=== PATIENT | male | born 1960 | race American Indian/Alaskan Native ===

== ENCOUNTER 2016-12-03 14:13 | Inpatient (IN) | payer BC ==
[2016-12-03] MEDS ORDERED: Sodium Chloride 0.9% 1,000 ML IV ONE ×2 (14:58→20:15)
[2016-12-03 15:23] LABS: BASO % 0.6 % (0.0-2.0); EOS # 0.2 K/uL (0.0-0.7); EOS % 4.5 % (0.0-4.0); HEMATOCRIT 25.2 % (35.0-51.0); LYMPH # 2.1 K/uL (1.0-4.3); LYMPH % 48.1 % (20.0-40.0); MEAN CELL VOLUME 87.2 fL (80.0-94.0); MEAN CORPUSCULAR HGB CONC 33.2 g/dL (33.0-37.0); MONO # 0.4 K/uL (0.0-0.8); MONO % 10.2 % (0.0-10.0); NRBC % 0.1 % (0.0-2.0); RED CELL DISTRIBUTION WIDTH 15.5 % (11.5-14.5); WHITE BLOOD COUNT 4.4 K/uL (4.8-10.8)
[2016-12-03 15:32] LABS: INR 1.2
[2016-12-03 15:34] LABS: CHLORIDE 106 mmol/L (98-107); SODIUM 136 mmol/L (132-148)
[2016-12-03 15:35] LABS: POTASSIUM 3.3 mmol/L (3.6-5.2)
[2016-12-03 15:36] LABS: GFR AFRICAN-AMERICAN > 60
[2016-12-03 15:37] LABS: ALB/GLOB RATIO 0.9 (1.0-2.1); ALKALINE PHOSPHATASE 40 U/L (38-126); ALT/SGPT 40 U/L (21-72); AST/SGOT 21 U/L (17-59); BILIRUBIN,TOTAL 0.2 mg/dL (0.2-1.3); BLOOD UREA NITROGEN 30 mg/dL (9-20); CALCIUM 7.9 mg/dl (8.6-10.4); CARBON DIOXIDE 20 mmol/L (22-30); GLUCOSE,RANDOM 89 mg/dL (75-110)
[2016-12-03 15:38] LABS: MAGNESIUM 1.5 mg/dL (1.6-2.3)
[2016-12-03] MEDS ORDERED: Pantoprazole 80 MG in Sodium Chloride 0.9% 100 ML IV STA (15:40)
--- NOTE | 2016-12-03 16:19 | C.PDOC ---
History Of Present Illness Pt had a syncopal episode while at work today. He c/o black stools for the past 2 days. Time Seen by Provider: 12/03/16 14:50 Chief Complaint (Nursing): Syncope History Per: Patient, EMS Onset/Duration Of Symptoms: Days (2) Current Symptoms Are (Timing): Still Present Number Of Bleeding Episodes: Multiple: (4) Severity: Moderate Associated Symptoms: Melena, Other (Syncope) Modifying Factors: Other Indicated Below Additional History Per: Prior Records Past Medical History Reviewed: Historical Data, Nursing Documentation, Vital Signs Vital Signs: Last Vital Signs Temp 98.2 F 12/03/16 14:31 Pulse 85 12/03/16 15:27 Resp 14 12/03/16 15:27 BP 103/51 L 12/03/16 15:27 Pulse Ox 98 12/03/16 16:31 - Medical History PMH: Gastrointestinal Ulcer (?), HTN Other PMH: Gout Other Surgeries: Sigmoid colectomy due to diverticulitis. Family History: States: Unknown Family Hx - Social History Hx Tobacco Use: No Hx Alcohol Use: No Hx Substance Use: No Review Of Systems Except As Marked, All Systems Reviewed And Found Negative. Constitutional: Negative for: Fever Cardiovascular: Negative for: Chest Pain Respiratory: Negative for: Shortness of Breath Gastrointestinal: Positive for: Melena. Negative for: Vomiting, Abdominal Pain , Diarrhea, Hematochezia, Hematemesis Genitourinary: Negative for: Dysuria Musculoskeletal: Negative for: Neck Pain Skin: Negative for: Rash Neurological: Negative for: Weakness, Numbness, Seizures Physical Exam - Physical Exam Appears: In Acute Distress (mild) Skin: Warm, Dry, Pale Head: Atraumatic, Normacephalic Eye(s): bilateral: PERRL, EOMI, Conjunctiva Pale Neck: Normal ROM, Supple Cardiovascular: Rhythm Regular Respiratory: Normal Breath Sounds, No Accessory Muscle Use Gastrointestinal/Abdominal: Soft, No Tenderness Rectal: Heme Positive, Melena (liquid) Back: No CVA Tenderness Extremity: Normal ROM, No Pedal Edema, No Calf Tenderness Neurological/Psych: Oriented x3, Normal Motor, Normal Sensation ED Course And Treatment - Laboratory Results Result Diagrams: 12/03/16 15:17 12/03/16 15:17 Lab Interpretation: Abnormal Interpretation Of Abnormal: Anemia. Elevated BUN. ECG: Interpreted By Me, Viewed By Me ECG Rhythm: Sinus Rhythm, Nonspecific Changes Rate From EC O2 Sat by Pulse Oximetry: 98 Pulse Ox Interpretation: Normal - Radiology CXR: Interpreted by Me, Viewed By Me CXR Interpretation: Yes: No Acute Disease - Physician Consult Information Physician Contacted: Awa Parker (GI Fellow) Outcome Of Conversation: She agrees with Protonix Drip, blood tranfusion and will see pt in the hospital. Progress - Interventions Interventions:: Observation, Intravenous fluid - Medications Administered Intravenous: Other (PPI) - Data Reviewed Data Reviewed: Lab, Diagnostic imaging, EKG, Old records - Patient Status Patient status: Partially improved - Critical Care Citical Care: Excluding Proc Time Critical Care Time: 60 minutes - Continuity of Care Discussed patient case with:: Patient, ED Nurse, On-call PMD-pt unassigned Discussed pt. case with software developer consultant/specialty: Gastroenterology - Patient Plan Patient Plan: Admission, Telemetry Disposition Discussed With : Magali Reid Comment: He accepted pt on his service. Doctor Will See Patient In The: Hospital Counseled Patient/Family Regarding: Studies Performed, Diagnosis - Disposition Disposition: HOSPITALIZED Disposition Time: 16:37 Condition: SERIOUS - Clinical Impression Clinical Impression: Syncope, Upper GI bleed, Anemia
--- NOTE | 2016-12-03 16:36 | RAD ---
PROCEDURE: CHEST RADIOGRAPH, 1 VIEW. Technique: Single view portable semi erect @ 15:00 HISTORY: Syncope COMPARISON: None available. FINDINGS: LUNGS: Clear. PLEURA: No pneumothorax or pleural fluid seen. CARDIOVASCULAR: No radiographic findings to suggest acute or significant cardiovascular disease. OSSEOUS STRUCTURES: No significant abnormalities. VISUALIZED UPPER ABDOMEN: Normal. OTHER FINDINGS: None. IMPRESSION: No active disease. Please note: No preliminary report/ innterpretation of this examination provided by emergency department personnel.
--- NOTE | 2016-12-03 19:15 | CP.PCM.CON ---
<Awa Parker - Last Filed: 12/03/16 19:24> History of Present Illness - History of Present Illness History of Present Illness: GI Fellow PGY4 Consult Note This is a 56yM with pmhx of HTN, gout, perforated diverticulitis s/p sigmoid resection 6yrs ago presenting s/p syncopal episode. Pt passed out on his way to work today and on admission to ER was found to have Hgb 8.4, reported black stools for 2 days and SBP 90-100s with HR 80s. Pt reports feeling fine for the past week and denies any presyncopal episodes, no chest pain, dizziness, hematemesis or hematochezia. Pt does reports dark stool starting 2-3days ago which he attributed to drinking red wine . Pt denies any abdominal pain or prior GI bleed. Pt reports that he had a colonoscopy and EGD last yr in [facility] and had one polypectomy and reports to have a small gastric ulcer with no active GI bleed, no h.pylori infection. Pt denies any NSAIDs, Ibuprofen, Advil, or Aleve. Pt reports feeling a little better at this time. Case was discussed with ER attending with plan for PPI drip., NPO, IVF hydration, PRBCs. At time of evaluation, pt had a large black tarry BM in bedside commode. Discussed with pt and his and sister at bedside, and will plan for emergent endoscopy tonight. ROS: A 12pt ROS was obtained and was negative except as above. 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 , Denies tobacco or drugs, social alcohol Past Patient History - Past Social History Smoking Status: Never Smoked - CARDIAC Hx Hypertension: Yes - MUSCULOSKELETAL/RHEUMATOLOGICAL Hx Gout: Yes - PSYCHIATRIC Hx Substance Use: No - SURGICAL HISTORY Other/Comment: Diverticulitis sx 2010 - ANESTHESIA Hx Anesthesia: Yes Hx Anesthesia Reactions: No Meds Allergies/Adverse Reactions: Allergies Allergy/AdvReac Type Severity Reaction Status Date / Time No Known Allergies Allergy Unverified 12/03/16 14:40 - Medications Medications: Current Medications Pantoprazole Sodium 80 mg/ (Sodium Chloride) 100 mls @ 10 mls/hr IV .Q10H STA PRN Reason: 8 MG/HR Stop: 12/04/16 01:39 Last Admin: 12/03/16 16:43 Dose: 10 mls/hr Physical Exam - Constitutional Appears: No Acute Distress - Head Exam Head Exam: ATRAUMATIC, NORMAL INSPECTION, NORMOCEPHALIC - Eye Exam Eye Exam: EOMI, Normal appearance, PERRL Pupil Exam: PERRL - ENT Exam ENT Exam: Mucous Membranes Moist, Normal Exam - Neck Exam Neck exam: Positive for: Normal Inspection - Respiratory Exam Respiratory Exam: Clear to Auscultation Bilateral, NORMAL BREATHING PATTERN - Cardiovascular Exam Cardiovascular Exam: RRR, +S1, +S2 - GI/Abdominal Exam GI & Abdominal Exam: Normal Bowel Sounds, Soft. absent: Distended, Organomegaly , Tenderness Additional comments: Surgical scars - Rectal Exam Rectal Exam: Black Stool - Extremities Exam Extremities exam: Positive for: full ROM, normal inspection. Negative for: pedal edema - Back Exam Back exam: NORMAL INSPECTION - Neurological Exam Neurological exam: Alert, Oriented x3 - Psychiatric Exam Psychiatric exam: Normal Affect, Normal Mood - Skin Skin Exam: Dry, Intact, Normal Color, Warm Results - Vital Signs Recent Vital Signs: Last Vital Signs Temp 98.2 F 12/03/16 14:31 Pulse 75 12/03/16 17:46 Resp 16 12/03/16 17:46 BP 101/59 L 12/03/16 17:46 Pulse Ox 100 12/03/16 17:46 - Labs Result Diagrams: 12/03/16 15:17 12/03/16 15:17 Labs: Laboratory Results - last 24 hr 12/03/16 12/03/16 12/03/16 15:17 15:17 15:17 WBC 4.4 L RBC 2.89 L Hgb 8.4 L Hct 25.2 L MCV 87.2 MCH 29.0 MCHC 33.2 RDW 15.5 H Plt Count 116 L MPV 9.0 Neut % (Auto) 36.6 L Lymph % (Auto) 48.1 H [place] % (Auto) 10.2 H Eos % (Auto) 4.5 H Baso % (Auto) 0.6 Neut # 1.6 L Lymph # 2.1 [place] # 0.4 Eos # 0.2 Baso # 0.0 Differential Comment PT 12.9 H INR 1.2 APTT 22 Sodium 136 Potassium 3.3 L Chloride 106 Carbon Dioxide 20 L Anion Gap 13 BUN 30 H Creatinine 0.8 Est GFR ( Amer) > 60 Est GFR (Non-Af Amer) > 60 Random Glucose 89 Calcium 7.9 L Magnesium 1.5 L Total Bilirubin 0.2 AST 21 ALT 40 Alkaline Phosphatase 40 Total Creatine Kinase 347 H CK-MB (Mass) 1.60 Troponin I, Quant < 0.0120 Total Protein 6.0 L Albumin 2.9 L Globulin 3.1 Albumin/Globulin Ratio 0.9 L Stool Occult Blood Blood Type Antibody Screen 12/03/16 12/03/16 15:17 15:49 WBC RBC Hgb Hct MCV MCH MCHC RDW Plt Count MPV Neut % (Auto) Lymph % (Auto) [place] % (Auto) Eos % (Auto) Baso % (Auto) Neut # Lymph # [place] # Eos # Baso # Differential Comment PT INR APTT Sodium Potassium Chloride Carbon Dioxide Anion Gap BUN Creatinine Est GFR ( Amer) Est GFR (Non-Af Amer) Random Glucose Calcium Magnesium Total Bilirubin AST ALT Alkaline Phosphatase Total Creatine Kinase CK-MB (Mass) Troponin I, Quant Total Protein Albumin Globulin Albumin/Globulin Ratio Stool Occult Blood Positive H Blood Type O POSITIVE Antibody Screen Negative Assessment & Plan - Assessment and Plan (Free Text) Assessment: This is a 56yM with pmhx of HTN, gout, diverticulitis presenting with syncope and anemia. 1. Symptomatic Anemia 2. Upper GI bleed 3. Melena 4. Hx of Gout 5. Hx HTN Plan: -Active GI bleed with melena, anemia and Hgb 8.4 -Resuscitate with 1U PRBCs, may need more blood transfusions, monitor H/H -IV PPI drip and Bolus -NPO -IVF NS @ 125cc/hr -Plan for emergent EGD tonight at 1999 -Case discussed with pt and family, consent signed and in chart -Will follow pt closely <Gerber Gooden - Last Filed: 12/03/16 21:02> Meds - Medications Medications: Current Medications Pantoprazole Sodium 80 mg/ (Sodium Chloride) 100 mls @ 10 mls/hr IV .Q10H STA PRN Reason: 8 MG/HR Stop: 12/04/16 01:39 Last Admin: 12/03/16 16:43 Dose: 10 mls/hr Sodium Chloride (Sodium Chloride 0.9%) 1,000 mls @ 125 mls/hr IV .Q8H BEN Sucralfate (Carafate Tab) 1 gm PO BID BEN Results - Vital Signs Recent Vital Signs: Last Vital Signs Temp 98.1 F 12/03/16 19:25 Pulse 81 12/03/16 19:40 Resp 16 12/03/16 19:40 BP 105/78 12/03/16 19:40 Pulse Ox 100 12/03/16 19:40 - Labs Result Diagrams: 12/03/16 15:17 12/03/16 15:17 Labs: Laboratory Results - last 24 hr 12/03/16 12/03/16 12/03/16 15:17 15:17 15:17 WBC 4.4 L RBC 2.89 L Hgb 8.4 L Hct 25.2 L MCV 87.2 MCH 29.0 MCHC 33.2 RDW 15.5 H Plt Count 116 L MPV 9.0 Neut % (Auto) 36.6 L Lymph % (Auto) 48.1 H [place] % (Auto) 10.2 H Eos % (Auto) 4.5 H Baso % (Auto) 0.6 Neut # 1.6 L Lymph # 2.1 [place] # 0.4 Eos # 0.2 Baso # 0.0 Differential Comment PT 12.9 H INR 1.2 APTT 22 Sodium 136 Potassium 3.3 L Chloride 106 Carbon Dioxide 20 L Anion Gap 13 BUN 30 H Creatinine 0.8 Est GFR ( Amer) > 60 Est GFR (Non-Af Amer) > 60 Random Glucose 89 Calcium 7.9 L Magnesium 1.5 L Total Bilirubin 0.2 AST 21 ALT 40 Alkaline Phosphatase 40 Total Creatine Kinase 347 H CK-MB (Mass) 1.60 Troponin I, Quant < 0.0120 Total Protein 6.0 L Albumin 2.9 L Globulin 3.1 Albumin/Globulin Ratio 0.9 L Stool Occult Blood Blood Type Antibody Screen 12/03/16 12/03/16 15:17 15:49 WBC RBC Hgb Hct MCV MCH MCHC RDW Plt Count MPV Neut % (Auto) Lymph % (Auto) [place] % (Auto) Eos % (Auto) Baso % (Auto) Neut # Lymph # [place] # Eos # Baso # Differential Comment PT INR APTT Sodium Potassium Chloride Carbon Dioxide Anion Gap BUN Creatinine Est GFR ( Amer) Est GFR (Non-Af Amer) Random Glucose Calcium Magnesium Total Bilirubin AST ALT Alkaline Phosphatase Total Creatine Kinase CK-MB (Mass) Troponin I, Quant Total Protein Albumin Globulin Albumin/Globulin Ratio Stool Occult Blood Positive H Blood Type O POSITIVE Antibody Screen Negative Attending/Attestation - Attestation I have personally seen and examined this patient.: Yes I have fully participated in the care of the patient.: Yes I have reviewed all pertinent clinical information: Yes Notes (Text): 12/03/16 20:56 I have seen and examined patient with GI fellow. Agree with above documentation with the following additions. In brief, this is a 56 year old male with history of HTN, gout, perforated diverticulitis s/p partial colon resection who presents to hospital with syncopal episode while at restaurant earlier today. Prior to this he was in usual state of health. He denies abdominal pain, nausea, vomiting, diarrhea, fever/chills, or weight loss. He does report having dark colored stool for the past 2-3 days but thought this was related to ETOH consumption. On arrival to hospital he had one large bowel movement which was black in color and tarry in consistency. He denies recent NSAID use. He had an EGD/colonoscopy 1 year ago in [place] which showed one polyp and a gastric ulcer. HTN Gout History of partial colon resection secondary to perforated diverticulitis Syncope Anemia, melena - severe posing threat to patient life - NPO - Transfuse 1 unit PRBC, continue to monitor H/H - Begin PPI infusion therapy - Given syncopal episode with active large melenotic bowel movement, plan for emergent endoscopy this evening to rule out actively bleeding peptic ulcer - Recommend ICU evaluation - Further recommendations following endoscopic examination
[2016-12-03] MEDS ORDERED: Propofol 10 mg/ml Inj (20 ML) ONE ×4 (19:45→20:43)
[2016-12-03] MEDS ORDERED: Phenylephrine 10 mg/ml Inj ONE (19:53)
[2016-12-03] MEDS ORDERED: Ketamine 50 mg/ml Inj (10 ml) ONE (19:55)
[2016-12-03] MEDS ORDERED: Lactated Ringer's 1,000 ML IV ONE ×3 (20:03→20:49)
[2016-12-03] MEDS: Sodium Chloride 0.9% 1,000 ML IV SCH (22:35)
--- NOTE | 2016-12-03 22:38 | CP.CCUPN ---
CCU Subjective - Physician Review Events Since Last Encounter (Free Text): 12/03/16 22:45 The Patient was seen and examined at the bedside, Medical records reviewed, and management issues were discussed and formulated with the house staff. 56 Y/O M with PMHx of HTN, gout, perforated diverticulitis s/p sigmoid resection 6 years ago Who presented to the ER with complaint of black stools for the past 2 days, also had syncopal episode while at work today. Pt was transfused one unit packed RBC, Started on PPI drip, NPO and IVF hydration Underwent emergent endoscopy tonight showing duodenal ulce, gastritis, no active bleeding. Admitted to ICU for mangement of acute upper GI bleeding Pt AAO x3. Alert, follows some commands Receiving 1U Packed RBC CCU Objective - Vital Signs / Intake & Output Vital Signs (Last 4 hours): Vital Signs Temp Pulse Resp BP Pulse Ox 12/03/16 19:40 81 16 105/78 100 12/03/16 19:25 98.1 F 80 16 111/43 L 99 Intake and Output (Last 8hrs): Intake & Output 12/03/16 12/03/16 12/03/16 06:59 14:59 22:59 Output Total 800 Balance -800 Weight 315 lb Output: Urine 800 Other: Voiding Method Urinal - Physical Exam Head: Positive for: Atraumatic, Normocephalic Pupils: Positive for: PERRL. Negative for: Sluggish, Non-Reactive Extroacular Muscles: Positive for: EOMI Conjunctiva: Positive for: Normal. Negative for: Injected, Icteric Mouth: Positive for: Moist Mucous Membranes Pharnyx: Positive for: Normal. Negative for: ERYTHEMA Nose (Internal): Positive for: Normal Inspection Neck: Positive for: Normal Range of Motion, Trachea Midline. Negative for: Meningeal Signs, MIDLINE TENDERNESS, Paraspinal Tenderness, JVD, Lymphadenopathy , Bruit, Other Respiratory/Chest: Positive for: Clear to Auscultation, Good Air Exchange. Negative for: Respiratory Distress, Accessory Muscle Use, Wheezes, Decreased Breath Sounds, Rales, Retracting, Rhonchi Cardiovascular: Positive for: Regular Rate and Rhythm, Normal S1, S2, Peripheal Pulses Present. Negative for: Murmurs, Irregular Rhythm, Tachycardic, Bradycardic Abdomen: Positive for: Normal Bowel Sounds. Negative for: Tenderness, Distention, Peritoneal Signs, Rebound, Guarding Upper Extremity: Positive for: Normal Inspection, Normal ROM, NORMAL PULSES, Capillary Refill < 2s. Negative for: Cyanosis, Edema Lower Extremity: Positive for: Normal Inspection, NORMAL PULSES, Capillary Refill < 2 s. Negative for: Edema, CALF TENDERNESS Neurological: Positive for: GCS=15, CN II-XII Intact, Speech Normal, Motor Func Grossly Intact, Normal Sensory Function Psychiatric: Positive for: Alert, Oriented x 3 - Medications Active Medications: Active Medications Generic Name Dose Route Start Last Admin Trade Name Freq PRN Reason Stop Dose Admin Pantoprazole Sodium 80 mg/ 100 mls @ 10 mls/hr 12/03/16 15:40 12/03/16 16:43 Sodium Chloride IV 12/04/16 01:39 10 mls/hr .Q10H STA Administration 8 MG/HR Sodium Chloride 1,000 mls @ 125 mls/hr 12/03/16 19:30 Sodium Chloride 0.9% IV .Q8H BEN Sucralfate 1 gm 12/04/16 10:00 Carafate Tab PO BID BEN - Patient Studies Lab Studies: Lab Studies 12/03/16 12/03/16 12/03/16 Range/Units 15:49 15:17 15:17 WBC (4.8-10.8) K/uL RBC (4.40-5.90) Mil/uL Hgb (12.0-18.0) g/dL Hct (35.0-51.0) % MCV (80.0-94.0) fL MCH (27.0-31.0) pg MCHC (33.0-37.0) g/dL RDW (11.5-14.5) % Plt Count (130-400) K/uL MPV (7.2-11.7) fL Neut % (Auto) (50.0-75.0) % Lymph % (Auto) (20.0-40.0) % [place] % (Auto) (0.0-10.0) % Eos % (Auto) (0.0-4.0) % Baso % (Auto) (0.0-2.0) % Neut # (1.8-7.0) K/uL Lymph # (1.0-4.3) K/uL [place] # (0.0-0.8) K/uL Eos # (0.0-0.7) K/uL Baso # (0.0-0.2) K/uL Differential Comment PT (9.7-12.2) SECONDS INR APTT (21-34) SECONDS Sodium 136 (132-148) mmol/L Potassium 3.3 L (3.6-5.2) mmol/L Chloride 106 (98-107) mmol/L Carbon Dioxide 20 L (22-30) mmol/L Anion Gap 13 (10-20) BUN 30 H (9-20) mg/dL Creatinine 0.8 (0.8-1.5) mg/dL Est GFR ( Amer) > 60 Est GFR (Non-Af Amer) > 60 Random Glucose 89 (75-110) mg/dL Calcium 7.9 L (8.6-10.4) mg/dl Magnesium 1.5 L (1.6-2.3) mg/dL Total Bilirubin 0.2 (0.2-1.3) mg/dL AST 21 (17-59) U/L ALT 40 (21-72) U/L Alkaline Phosphatase 40 (38-126) U/L Total Creatine Kinase 347 H (55-170) U/L CK-MB (Mass) 1.60 (0.0-3.38) ng/mL Troponin I, Quant < 0.0120 (0.00-0.120) ng/mL Total Protein 6.0 L (6.3-8.3) g/dL Albumin 2.9 L (3.5-5.0) g/dL Globulin 3.1 (2.2-3.9) gm/dL Albumin/Globulin Ratio 0.9 L (1.0-2.1) Stool Occult Blood Positive H (NEGATIVE) Blood Type O POSITIVE Antibody Screen Negative 12/03/16 12/03/16 Range/Units 15:17 15:17 WBC 4.4 L (4.8-10.8) K/uL RBC 2.89 L (4.40-5.90) Mil/uL Hgb 8.4 L (12.0-18.0) g/dL Hct 25.2 L (35.0-51.0) % MCV 87.2 (80.0-94.0) fL MCH 29.0 (27.0-31.0) pg MCHC 33.2 (33.0-37.0) g/dL RDW 15.5 H (11.5-14.5) % Plt Count 116 L (130-400) K/uL MPV 9.0 (7.2-11.7) fL Neut % (Auto) 36.6 L (50.0-75.0) % Lymph % (Auto) 48.1 H (20.0-40.0) % [place] % (Auto) 10.2 H (0.0-10.0) % Eos % (Auto) 4.5 H (0.0-4.0) % Baso % (Auto) 0.6 (0.0-2.0) % Neut # 1.6 L (1.8-7.0) K/uL Lymph # 2.1 (1.0-4.3) K/uL [place] # 0.4 (0.0-0.8) K/uL Eos # 0.2 (0.0-0.7) K/uL Baso # 0.0 (0.0-0.2) K/uL Differential Comment PT 12.9 H (9.7-12.2) SECONDS INR 1.2 APTT 22 (21-34) SECONDS Sodium (132-148) mmol/L Potassium (3.6-5.2) mmol/L Chloride (98-107) mmol/L Carbon Dioxide (22-30) mmol/L Anion Gap (10-20) BUN (9-20) mg/dL Creatinine (0.8-1.5) mg/dL Est GFR ( Amer) Est GFR (Non-Af Amer) Random Glucose (75-110) mg/dL Calcium (8.6-10.4) mg/dl Magnesium (1.6-2.3) mg/dL Total Bilirubin (0.2-1.3) mg/dL AST (17-59) U/L ALT (21-72) U/L Alkaline Phosphatase (38-126) U/L Total Creatine Kinase (55-170) U/L CK-MB (Mass) (0.0-3.38) ng/mL Troponin I, Quant (0.00-0.120) ng/mL Total Protein (6.3-8.3) g/dL Albumin (3.5-5.0) g/dL Globulin (2.2-3.9) gm/dL Albumin/Globulin Ratio (1.0-2.1) Stool Occult Blood (NEGATIVE) Blood Type Antibody Screen Laboratory Results - last 24 hr 12/03/16 12/03/16 12/03/16 15:17 15:17 15:17 WBC 4.4 L RBC 2.89 L Hgb 8.4 L Hct 25.2 L MCV 87.2 MCH 29.0 MCHC 33.2 RDW 15.5 H Plt Count 116 L MPV 9.0 Neut % (Auto) 36.6 L Lymph % (Auto) 48.1 H [place] % (Auto) 10.2 H Eos % (Auto) 4.5 H Baso % (Auto) 0.6 Neut # 1.6 L Lymph # 2.1 [place] # 0.4 Eos # 0.2 Baso # 0.0 Differential Comment PT 12.9 H INR 1.2 APTT 22 Sodium 136 Potassium 3.3 L Chloride 106 Carbon Dioxide 20 L Anion Gap 13 BUN 30 H Creatinine 0.8 Est GFR ( Amer) > 60 Est GFR (Non-Af Amer) > 60 Random Glucose 89 Calcium 7.9 L Magnesium 1.5 L Total Bilirubin 0.2 AST 21 ALT 40 Alkaline Phosphatase 40 Total Creatine Kinase 347 H CK-MB (Mass) 1.60 Troponin I, Quant < 0.0120 Total Protein 6.0 L Albumin 2.9 L Globulin 3.1 Albumin/Globulin Ratio 0.9 L Stool Occult Blood Blood Type Antibody Screen 12/03/16 12/03/16 15:17 15:49 WBC RBC Hgb Hct MCV MCH MCHC RDW Plt Count MPV Neut % (Auto) Lymph % (Auto) [place] % (Auto) Eos % (Auto) Baso % (Auto) Neut # Lymph # [place] # Eos # Baso # Differential Comment PT INR APTT Sodium Potassium Chloride Carbon Dioxide Anion Gap BUN Creatinine Est GFR ( Amer) Est GFR (Non-Af Amer) Random Glucose Calcium Magnesium Total Bilirubin AST ALT Alkaline Phosphatase Total Creatine Kinase CK-MB (Mass) Troponin I, Quant Total Protein Albumin Globulin Albumin/Globulin Ratio Stool Occult Blood Positive H Blood Type O POSITIVE Antibody Screen Negative EKG/Cardiology Studies: Cardiology / EKG Studies 12/03/16 14:17 EKG [ELECTROCARDIOGRAM] Stat Comment: Mode Of Transportation: BED Reason For Exam: syncope Fingerstick Blood Sugar Results: 114 Review of Systems - Cardiovascular Cardiovascular: absent: As Per HPI, Acrocyanosis, Chest Pain, Chest Pain at Rest , Chest Pain with Activity, Claudication, Diaphoresis, Dyspnea, Dyspnea on Exertion, Edema, Irregular Heart Rhythm, Pain Radiating to Arm/Neck/Jaw, Leg Edema, Leg Ulcers, Lightheadedness, Orthopnea, Palpitations, Paroxysmal Nocturnal Dyspnea, Pedal Edema, Radiating Pain, Rapid Heart Rate, Slow Heart Rate, Syncope, Other, UNREMARKABLE - Respiratory Respiratory: absent: As Per HPI, Cough, Dyspnea, Hemoptysis, Dyspnea on Exertion , Wheezing, Snoring, Stridor, Pain on Inspiration, Chest Congestion, Excessive Mucous Production, Change in Mucous Color, Pain with Coughing, Other, UNREMARKABLE - Gastrointestinal Gastrointestinal: Abdominal Pain, Melena, Nausea. absent: Vomiting Critical Care Progress Note - Extremities/Vascular Does the Patient have a Central Venous Catheter?: No Does the Patient need a Central Venous Catheter?: No Does the Patient have a Vang Catheter?: No Does the Patient need a Vang Catheter?: No - Nutrition Nutrition: Nutrition Category Date Time Status Liquid Diet [DIET] Diets 12/03/16 Dinner Active Assessment/Plan (1) Upper GI bleed Current Visit: Yes Status: Acute (2) Syncope Current Visit: Yes Status: Acute (3) Posthemorrhagic anemia Current Visit: Yes Status: Acute (4) Duodenal ulcer Current Visit: Yes Status: Acute - Assessment and Plan (Free Text) Assessment: Acute upper GI bleed S/p 1U Packed RBC transfusion - Acute upper GI bleed most likely PUD/ duodenal ulcer - Anemia sec to acute Blood loss - Admit to ICU sec to hemodynamic instability (orthostatic hypotension, tachycardia, syncope) - Nasogastric tube - Two large bore peripheral catheters - Suplemental O2 - NPO - Volume resuscitation - Hold antihypertensives - IV Hydration, with SODIUM CHLORIDE 0.9% INJ @ 100 ml/hr - PANTOPRAZOLE drip - Serial CBCs q 8 /HR, RBC transfusions to keep hemoglobin > 8 - Active type and screen sent today - hold All antiplatelets and anticoagulation - GI evaluation appreciated, underwent endoscopy for the diagnosis and treatment of active UGI bleeding - Follow up duodenal ulcer biopsy - DVT PPx: SCD Full code Total Critical Care Time spent 45 minutes
--- NOTE | 2016-12-03 23:47 | CP.PCM.HP ---
History of Present Illness - History of Present Illness History of Present Illness: COMPREHENSIVE HISTORY & PHYSICAL EXAM HPI WITH NO PREVIOUS CARDIAC HISTORY ,PT WHILE GOING TO WORK , HAD SYNCOPAL EPISODE . PRELIMANARY W/U IN ER , HG 8.4, POS OCCULT STOOL RECENTLY HAD EGD/COLO IN [place] , SMALL GASTRIC ULCER NO ASA, NSAID INGESTION PAST HIST. NO CARDIAC/NEURO HISTORY PERSONAL HIST: Smoking. N Alcohol. Y Allergy N Travel_- . FAMILY HIST : ROS : Constitutional: Negative for weight change, chills, night sweats Eyes: Negative for redness, swelling, itching, discharge, vision changes, blurry vision, double vision, glaucoma, cataracts, Ears: Negative for hearing loss, ringing, , tinnitus, vertigo Nose: Negative for rhinorrhea, stuffiness, sniffing, itching, postnasal drip, discoloration, nasal congestion and epistaxis. Throat: Negative for throat clearing, sore throat, hoarseness, difficulty swallowing and difficulty speaking. Respiratory: Negative for cough, , sputum production, chest tightness, wheezing, pleuritic chest pain ,daytime somnolence, chronic cough, hemoptysis, snoring at night, Cardiovascular: Negative for chest pain, palpitations, orthopnea, PND, Edema of legs, leg cramps, angina, claudication, , irregular heartbeat, Neurology: Negative for irritability, muscle weakness, numbness and tingling, seizures, tremors, migraines, slurred speech, , memory loss, mood changes, recurrent headaches Gastrointestinal: Negative for difficulty swallowing, diarrhea, constipation, black stools, rectal bleeding, nausea, flatulence, reflux, poor appetite, changes in bowel habits, abdominal pain Genitourinary: Negative for frequent urination, hematuria, discharge, incontinence, urinary retention, frequent UTI, Psychiatric: Negative for depression, anxiety/panic, suicidal tendencies, Musculoskeletal: Negative for swollen joints, back pain, , neck pain, morning stiffness of joints, . Skin: Negative for rash, ulcers, itching, dry skin and pigmented lesions. P/E: Constitutional: Appears stated age and in no apparent distress. Head: Normocephalic. Ears: External ear canals patent without inflammation. Tympanic membranes intact with normal light reflex and landmark. Eyes: Pupils are central, bilaterally equal, symmetrical and reacts to light with normal movements and no icterus or pallor. Nose: External nares are patent. Mucosa is pink Mouth-Throat: Good general appearance and condition. No post-pharyngeal/oropharyngeal erythema and tonsillar hypertrophy. Good dental hygiene. Neck-Lymphatic: Neck is supple with normal ROM, no thyromegaly, lymph nodes or masses. JVD is normal with no carotid bruit. Lungs: Clear to percussion and auscultation with bilateral normal air entry. Cardiovascular: S1 and S2 are normal with no murmurs, gallops and rub. GI Exam: No hepatomegaly. Abdomen is soft and non-tender. No Organomegaly , masses or hernias are evident and bowel sounds are normal and active. Neurology: Higher function and all cranial nerves intact, with no gross motor or sensory deficit. Superficial and deep reflexes are normal with downwards planters. No cerebellar deficit with normal gait. Musculoskeletal: No tender spots with normal curvature of the spine with no swelling or restricted ROM of the small and large joints. Extremities: Homans sign absent. Intact pulses with no pitting edema, calf tenderness or skin color changes. Skin: No rash, eruptions or abnormal skin pigmentation LAB/RADIOLOGY: ASSESMENT : UPPER GI BLREEDING , PROBABLY FROM GASTRIC ULCER, R/O CA PLAN: TRANSFUSE GI EVAL Present on Admission - Present on Admission Any Indicators Present on Admission: No Past Patient History - Past Social History Smoking Status: Never Smoked - CARDIAC Hx Hypertension: Yes - MUSCULOSKELETAL/RHEUMATOLOGICAL Hx Falls: No - PSYCHIATRIC Hx Substance Use: No - SURGICAL HISTORY Other/Comment: Diverticulitis sx 2010 - ANESTHESIA Hx Anesthesia: Yes Hx Anesthesia Reactions: No Meds Allergies/Adverse Reactions: Allergies Allergy/AdvReac Type Severity Reaction Status Date / Time No Known Allergies Allergy Unverified 12/03/16 14:40 Results - Vital Signs Recent Vital Signs: Last Vital Signs Temp 98.1 F 12/03/16 19:25 Pulse 81 12/03/16 19:40 Resp 16 12/03/16 19:40 BP 105/78 12/03/16 19:40 Pulse Ox 100 12/03/16 19:40 - Labs Result Diagrams: 12/04/16 06:09 12/04/16 06:10 Labs: Laboratory Results - last 24 hr 12/03/16 12/03/16 12/03/16 15:17 15:17 15:17 WBC 4.4 L RBC 2.89 L Hgb 8.4 L Hct 25.2 L MCV 87.2 MCH 29.0 MCHC 33.2 RDW 15.5 H Plt Count 116 L MPV 9.0 Neut % (Auto) 36.6 L Lymph % (Auto) 48.1 H [place] % (Auto) 10.2 H Eos % (Auto) 4.5 H Baso % (Auto) 0.6 Neut # 1.6 L Lymph # 2.1 [place] # 0.4 Eos # 0.2 Baso # 0.0 Differential Comment PT 12.9 H INR 1.2 APTT 22 Sodium 136 Potassium 3.3 L Chloride 106 Carbon Dioxide 20 L Anion Gap 13 BUN 30 H Creatinine 0.8 Est GFR ( Amer) > 60 Est GFR (Non-Af Amer) > 60 Random Glucose 89 Calcium 7.9 L Magnesium 1.5 L Total Bilirubin 0.2 AST 21 ALT 40 Alkaline Phosphatase 40 Total Creatine Kinase 347 H CK-MB (Mass) 1.60 Troponin I, Quant < 0.0120 Total Protein 6.0 L Albumin 2.9 L Globulin 3.1 Albumin/Globulin Ratio 0.9 L Stool Occult Blood Blood Type Antibody Screen 12/03/16 12/03/16 15:17 15:49 WBC RBC Hgb Hct MCV MCH MCHC RDW Plt Count MPV Neut % (Auto) Lymph % (Auto) [place] % (Auto) Eos % (Auto) Baso % (Auto) Neut # Lymph # [place] # Eos # Baso # Differential Comment PT INR APTT Sodium Potassium Chloride Carbon Dioxide Anion Gap BUN Creatinine Est GFR ( Amer) Est GFR (Non-Af Amer) Random Glucose Calcium Magnesium Total Bilirubin AST ALT Alkaline Phosphatase Total Creatine Kinase CK-MB (Mass) Troponin I, Quant Total Protein Albumin Globulin Albumin/Globulin Ratio Stool Occult Blood Positive H Blood Type O POSITIVE Antibody Screen Negative
[2016-12-04] MEDS: Sodium Chloride 0.9% 1,000 ML IV SCH (06:00)
[2016-12-04 06:15] LABS: BASO % 0.7 % (0.0-2.0); EOS # 0.1 K/uL (0.0-0.7); EOS % 1.9 % (0.0-4.0); LYMPH # 1.6 K/uL (1.0-4.3); LYMPH % 23.8 % (20.0-40.0); MEAN CELL VOLUME 87.3 fL (80.0-94.0); MEAN CORPUSCULAR HEMOGLOBIN 29.5 pg (27.0-31.0); MEAN CORPUSCULAR HGB CONC 33.8 g/dL (33.0-37.0); MEAN PLATELET VOLUME 9.3 fL (7.2-11.7); MONO # 0.6 K/uL (0.0-0.8); MONO % 9.6 % (0.0-10.0); NRBC % 0.1 % (0.0-2.0); RED CELL DISTRIBUTION WIDTH 15.8 % (11.5-14.5); WHITE BLOOD COUNT 6.6 K/uL (4.8-10.8)
[2016-12-04 06:34] LABS: CHLORIDE 106 mmol/L (98-107); SODIUM 136 mmol/L (132-148)
[2016-12-04 06:35] LABS: POTASSIUM 3.7 mmol/L (3.6-5.2)
[2016-12-04 06:37] LABS: ALB/GLOB RATIO 1.1 (1.0-2.1); ALKALINE PHOSPHATASE 38 U/L (38-126); ALT/SGPT 32 U/L (21-72); AST/SGOT 24 U/L (17-59); BILIRUBIN,TOTAL 0.7 mg/dL (0.2-1.3); BLOOD UREA NITROGEN 19 mg/dL (9-20); CALCIUM 7.9 mg/dl (8.6-10.4); CARBON DIOXIDE 22 mmol/L (22-30); GFR AFRICAN-AMERICAN > 60; GLUCOSE,RANDOM 82 mg/dL (75-110); TOTAL PROTEIN 5.8 g/dL (6.3-8.3)
[2016-12-04 06:38] LABS: MAGNESIUM 1.7 mg/dL (1.6-2.3)
--- NOTE | 2016-12-04 07:31 | CP.PCM.PN ---
<Cyn Zapata - Last Filed: 12/04/16 09:30> Subjective - Date & Time of Evaluation Date of Evaluation: 12/04/16 Time of Evaluation: 07:26 - Subjective Subjective: Gastroenterology Fellow/PGY5 Progress Note Patient slept well overnight. Denied melena or hematochezia overnight. Did not have liquids overnight. A 12-point review of systems negative except for as above. Objective - Vital Signs/Intake and Output Vital Signs (last 24 hours): Temp Pulse Resp BP Pulse Ox 97.7 F 68 19 123/65 100 12/04/16 04:00 12/04/16 04:30 12/04/16 04:30 12/04/16 04:29 12/04/16 04:30 Intake and Output: 12/04/16 12/04/16 06:59 18:59 Intake Total 1120 Output Total 1500 Balance -380 - Medications Medications: Current Medications Sodium Chloride (Sodium Chloride 0.9%) 1,000 mls @ 125 mls/hr IV .Q8H BEN Last Admin: 12/04/16 06:00 Dose: 125 mls/hr Pantoprazole Sodium (Protonix Ec Tab) 40 mg PO DAILY [facility] Sucralfate (Carafate Tab) 1 gm PO BID BEN - Labs Labs: 12/04/16 06:09 12/04/16 06:10 PT 12.9 SECONDS (9.7-12.2) H 12/03/16 15:17 INR 1.2 12/03/16 15:17 APTT 22 SECONDS (21-34) 12/03/16 15:17 - Constitutional Appears: Non-toxic, No Acute Distress - Head Exam Head Exam: ATRAUMATIC, NORMOCEPHALIC - Eye Exam Eye Exam: EOMI, PERRL Pupil Exam: PERRL. absent: Miosis, Mydriatic - ENT Exam ENT Exam: Mucous Membranes Moist, Normal Oropharynx - Neck Exam Neck Exam: Full ROM, Normal Inspection - Respiratory Exam Respiratory Exam: Clear to Ausculation Bilateral. absent: Rales, Rhonchi, Wheezes - Cardiovascular Exam Cardiovascular Exam: RRR, +S1, +S2. absent: Gallop, Rubs - GI/Abdominal Exam GI & Abdominal Exam: Soft, Normal Bowel Sounds. absent: Distended, Firm, Guarding, Rigid, Tenderness, Organomegaly, Rebound - Extremities Exam Extremities Exam: Normal Inspection, Pedal Edema - Neurological Exam Neurological Exam: Alert, Awake - Psychiatric Exam Psychiatric exam: Normal Affect, Normal Mood - Skin Skin Exam: Dry, Intact, Normal Color, Warm Assessment and Plan - Assessment and Plan (Free Text) Assessment: 56 year old male with history of Hypertension, Gout, perforated diverticulitis s /p partial resection 2010, PUD presenting with syncope. Active treatment of symptomatic anemia 2/2 Upper GI bleed POD1 (12/03) superficial 10mm duodenal ulcer, Cal III classification. Prior EGD/colonoscopy 88188 showed polyps and small gastric ulcers per patient. Plan: >s/p 1U pRBCs (12/03) >continue PPI IV daily and sucralfate >H/H stable >clear liquid diet, advance as tolerated >follow up duodenal ulcer biopsy >will follow clinical course <Mc Carnes MD - Last Filed: 12/04/16 15:49> Objective - Vital Signs/Intake and Output Vital Signs (last 24 hours): Temp Pulse Resp BP Pulse Ox 97.6 F 79 18 103/56 L 98 12/04/16 12:00 12/04/16 13:30 12/04/16 13:30 12/04/16 13:29 12/04/16 13:30 Intake and Output: 12/04/16 12/04/16 06:59 18:59 Intake Total 1350 1880 Output Total 2100 800 Balance -750 1080 - Medications Medications: Current Medications Pantoprazole Sodium (Protonix Ec Tab) 40 mg PO DAILY [facility] Last Admin: 12/04/16 10:38 Dose: 40 mg Sucralfate (Carafate Tab) 1 gm PO BID [facility] Last Admin: 12/04/16 10:05 Dose: 1 gm - Labs Labs: 12/04/16 06:09 12/04/16 06:10 PT 12.9 SECONDS (9.7-12.2) H 12/03/16 15:17 INR 1.2 12/03/16 15:17 APTT 22 SECONDS (21-34) 12/03/16 15:17 Attending/Attestation - Attestation I have personally seen and examined this patient.: Yes I have fully participated in the care of the patient.: Yes I have reviewed all pertinent clinical information, including history, physical exam and plan: Yes Notes (Text): 12/04/16 15:47 patient seen with GI fellow- This is a 56 year old male with history of Hypertension, Gout, perforated diverticulitis s/p partial resection 2010, PUD presenting with syncope in setting of symptomatic anemia 2/2 Upper GI bleed s/p EGD showing superficial 10mm duodenal ulcer, Cal III classification. H/Hct stable. Continue PPi daily and sucralfate. Advance diet. Patient can be discharged. Follow up gastric biopsies
[2016-12-04] MEDS: Pantoprazole 40 mg EC Tab PO SCH (10:38)
--- NOTE | 2016-12-04 13:28 | CP.PCM.PN ---
Subjective - Date & Time of Evaluation Date of Evaluation: 12/04/16 Time of Evaluation: 13:27 - Subjective Subjective: CHIEF COMPLAINTS TODAY : WEAK NO FURTHER ASHLEIGH ROS. HEENT : N. Resp : No cough, wheezing ,pleuritic CP ,or hemoptysis Cardio : No anginal CP, PND, orthopnea, palpitation GI : No abd.pain, n/v ,diarrhea or GI bleeding . [employer] : No headache, vertigo, focal deficit. Musculoskel : No joint swelling , Derm : No rash Psych : Normal affect. Ext : No swelling ,calf pain PE. Pt. is alert awake in no distress. V.S As noted in the chart Head ,ear nose,throat and eyes : Normal. Neck : Supple with normal carotids. Lungs: Clear air entry. Heart : S1 & S2 normal with S4. No murmur. Abd : Soft non tender with normal bowel sounds. Neuro : Moves all ext. with no localized deficit. Ext : No edema with intact pulses.Non tender calves Derm : No rashes or decubitus ulcer. LABS/RADIOLOGY: ASSESSMENT/PLAN : S/P ENDO AWAITING BIOPSY Objective - Vital Signs/Intake and Output Vital Signs (last 24 hours): Temp Pulse Resp BP Pulse Ox 97.8 F 80 23 106/57 L 97 12/04/16 08:00 12/04/16 09:28 12/04/16 09:28 12/04/16 09:29 12/04/16 09:28 Intake and Output: 12/04/16 12/04/16 11:59 23:59 Intake Total 2125 Output Total 600 Balance 1525 - Medications Medications: Current Medications Pantoprazole Sodium (Protonix Ec Tab) 40 mg PO DAILY [facility] Last Admin: 12/04/16 10:38 Dose: 40 mg Sucralfate (Carafate Tab) 1 gm PO BID [facility] Last Admin: 12/04/16 10:05 Dose: 1 gm - Labs Labs: 12/04/16 06:09 12/04/16 06:10 PT 12.9 SECONDS (9.7-12.2) H 12/03/16 15:17 INR 1.2 12/03/16 15:17 APTT 22 SECONDS (21-34) 12/03/16 15:17
[2016-12-04 16:21] VITALS: RESP 20
--- NOTE | 2016-12-04 18:16 | CP.CCUPN ---
CCU Subjective - Physician Review Subjective (Free Text): Patient was seen and examined at bedside. Patient reports that he is doing well and he feels better. Patient denies chest pain, SOB, palpitations, fever, chills , nausea, vomiting, dizziness. CCU Objective - Vital Signs / Intake & Output Vital Signs (Last 4 hours): Vital Signs Temp Pulse Resp BP Pulse Ox 12/04/16 15:00 98.2 F 78 20 126/71 96 Intake and Output (Last 8hrs): Intake & Output 12/04/16 12/04/16 12/04/16 06:59 14:59 22:59 Intake Total 1040 1640 240 Output Total 600 800 Balance 440 840 240 Weight 312 lb Intake: Intake, IV Amount 1040 500 Left Hand 0 0 Right Antecubital 1000 500 Right Distal Port 40 0 Antecubital Oral 1140 240 Blood Product 0 0 Output: Urine 600 800 Urine, Voided 600 800 Other: # Voids Urine, Voided 2 # Bowel Movements 0 - Physical Exam Head: Positive for: Atraumatic, Normocephalic Pupils: Negative for: Sluggish, Non-Reactive Extroacular Muscles: Positive for: EOMI Conjunctiva: Negative for: Injected, Icteric Mouth: Positive for: Moist Mucous Membranes Pharnyx: Positive for: Normal. Negative for: ERYTHEMA Neck: Positive for: Trachea Midline. Negative for: Meningeal Signs, MIDLINE TENDERNESS, Paraspinal Tenderness, JVD, Lymphadenopathy, Bruit, Other Respiratory/Chest: Positive for: Clear to Auscultation, Good Air Exchange. Negative for: Respiratory Distress, Accessory Muscle Use, Wheezes, Decreased Breath Sounds, Rales, Retracting, Rhonchi Cardiovascular: Positive for: Regular Rate and Rhythm, Normal S1, S2, Peripheal Pulses Present. Negative for: Murmurs, Irregular Rhythm, Tachycardic, Bradycardic Abdomen: Positive for: Normal Bowel Sounds. Negative for: Tenderness, Distention, Peritoneal Signs, Rebound, Guarding Upper Extremity: Positive for: Normal Inspection, Normal ROM, NORMAL PULSES, Capillary Refill < 2s. Negative for: Cyanosis, Edema Lower Extremity: Positive for: Normal Inspection, NORMAL PULSES, Capillary Refill < 2 s. Negative for: Edema, CALF TENDERNESS Neurological: Positive for: GCS=15, CN II-XII Intact, Speech Normal, Motor Func Grossly Intact, Normal Sensory Function Skin: Positive for: Warm, Normal Color Psychiatric: Positive for: Alert, Oriented x 3 - Medications Active Medications: Active Medications Generic Name Dose Route Start Last Admin Trade Name Brenda PRN Reason Stop Dose Admin Pantoprazole Sodium 40 mg 12/04/16 10:00 12/04/16 10:38 Protonix Ec Tab PO 40 mg DAILY BEN Administration Sucralfate 1 gm 12/04/16 10:00 12/04/16 10:05 Carafate Tab PO 1 gm BID BEN Administration - Patient Studies Lab Studies: Lab Studies 12/04/16 12/04/16 12/03/16 Range/Units 06:10 06:09 15:17 WBC 6.6 (4.8-10.8) K/uL RBC 2.86 L (4.40-5.90) Mil/uL Hgb 8.5 L (12.0-18.0) g/dL Hct 25.0 L (35.0-51.0) % MCV 87.3 (80.0-94.0) fL MCH 29.5 (27.0-31.0) pg MCHC 33.8 (33.0-37.0) g/dL RDW 15.8 H (11.5-14.5) % Plt Count 122 L (130-400) K/uL MPV 9.3 (7.2-11.7) fL Neut % (Auto) 64.0 (50.0-75.0) % Lymph % (Auto) 23.8 (20.0-40.0) % Dixon % (Auto) 9.6 (0.0-10.0) % Eos % (Auto) 1.9 (0.0-4.0) % Baso % (Auto) 0.7 (0.0-2.0) % Neut # 4.2 (1.8-7.0) K/uL Lymph # 1.6 (1.0-4.3) K/uL Dixon # 0.6 (0.0-0.8) K/uL Eos # 0.1 (0.0-0.7) K/uL Baso # 0.0 (0.0-0.2) K/uL Sodium 136 (132-148) mmol/L Potassium 3.7 (3.6-5.2) mmol/L Chloride 106 (98-107) mmol/L Carbon Dioxide 22 (22-30) mmol/L Anion Gap 10 (10-20) BUN 19 (9-20) mg/dL Creatinine 0.8 (0.8-1.5) mg/dL Est GFR ( Amer) > 60 Est GFR (Non-Af Amer) > 60 Random Glucose 82 (75-110) mg/dL Calcium 7.9 L (8.6-10.4) mg/dl Phosphorus 3.0 (2.5-4.5) mg/dL Magnesium 1.7 (1.6-2.3) mg/dL Total Bilirubin 0.7 (0.2-1.3) mg/dL AST 24 (17-59) U/L ALT 32 (21-72) U/L Alkaline Phosphatase 38 (38-126) U/L Total Protein 5.8 L (6.3-8.3) g/dL Albumin 3.0 L (3.5-5.0) g/dL Globulin 2.8 (2.2-3.9) gm/dL Albumin/Globulin Ratio 1.1 (1.0-2.1) Blood Type O POSITIVE Antibody Screen Negative Laboratory Results - last 24 hr 12/03/16 12/04/16 12/04/16 15:17 06:09 06:10 WBC 6.6 RBC 2.86 L Hgb 8.5 L Hct 25.0 L MCV 87.3 MCH 29.5 MCHC 33.8 RDW 15.8 H Plt Count 122 L MPV 9.3 Neut % (Auto) 64.0 Lymph % (Auto) 23.8 Dixon % (Auto) 9.6 Eos % (Auto) 1.9 Baso % (Auto) 0.7 Neut # 4.2 Lymph # 1.6 Dixon # 0.6 Eos # 0.1 Baso # 0.0 Sodium 136 Potassium 3.7 Chloride 106 Carbon Dioxide 22 Anion Gap 10 BUN 19 Creatinine 0.8 Est GFR ( Amer) > 60 Est GFR (Non-Af Amer) > 60 Random Glucose 82 Calcium 7.9 L Phosphorus 3.0 Magnesium 1.7 Total Bilirubin 0.7 AST 24 ALT 32 Alkaline Phosphatase 38 Total Protein 5.8 L Albumin 3.0 L Globulin 2.8 Albumin/Globulin Ratio 1.1 Blood Type O POSITIVE Antibody Screen Negative Fingerstick Blood Sugar Results: 114 Review of Systems - Constitutional Constitutional: absent: Fever, Chills, Sweats, Weakness - EENT Eyes: absent: Blurred Vision, Change in Vision Ears: absent: Dizziness - Cardiovascular Cardiovascular: absent: Chest Pain, Dyspnea, Lightheadedness, Palpitations - Respiratory Respiratory: absent: Dyspnea, Wheezing, Pain on Inspiration - Gastrointestinal Gastrointestinal: absent: Abdominal Pain, Nausea, Vomiting - Musculoskeletal Musculoskeletal: absent: Numbness, Tingling - Neurological Neurological: absent: Dizziness, Headaches, Syncope, Tingling, Weakness Critical Care Progress Note - Nutrition Nutrition: Nutrition Category Date Time Status Regular Diet [DIET] Diets 12/04/16 Lunch Active Assessment/Plan - Assessment and Plan (Free Text) Assessment: Patient is a 56 year old patient with past medical history HTN, gout, perforated diverticulitis (sigmoid and transverse colon resection 6 yrs ago) who presented with syncopal episode and black stools for 2 days and found on admission to gave Hgb 8.4 Plan: Transfer to [facility] Plan: Neuro: Alert, awake and oriented Cardio: No acute issues Pulm: No acute issues GI: Upper GI bleed GI consult, Dr. Gooden---> Help appreciated Endoscopy: One crateted duodenal ulcer with a clean ulcer base, no active bleeding noted Medication/Management: * Protonix 40mg PO daily * Sucralfate 1gm PO BID Endo: No acute issues Heme: H/H: 8.8/25.2 * Transfused 1 unit of PRBC ID: No acute issues Prophylaxis: DVT: Ambulating GI: Protonix 40mg PO daily Plan: Transfer to [facility]-surg
--- NOTE | 2016-12-04 21:43 | CARD ---
APPROVED REPORT EKG Measurement Heart [id number] ND [id number] <Conclusion> Normal sinus rhythm Minimal voltage criteria for LVH, may be normal variant T wave abnormality, consider inferolateral ischemia Abnormal ECG
--- NOTE | 2016-12-05 06:13 | CP.PCM.PN ---
<Cyn Zapata - Last Filed: 12/05/16 09:04> Subjective - Date & Time of Evaluation Date of Evaluation: 12/05/16 Time of Evaluation: 06:09 - Subjective Subjective: Gastroenterology Fellow/PGY5 Progress Note Patient notes improved weakness. Tolerated regular diet. No bowel movement yesterday. A 12-point review of systems negative except for as above. Objective - Vital Signs/Intake and Output Vital Signs (last 24 hours): Temp Pulse Resp BP Pulse Ox 98 F 77 20 109/58 L 99 12/05/16 00:00 12/05/16 00:00 12/05/16 00:00 12/05/16 00:00 12/05/16 00:00 Intake and Output: 12/04/16 12/05/16 18:59 06:59 Intake Total 1880 700 Output Total 800 Balance 1080 700 - Medications Medications: Current Medications Pantoprazole Sodium (Protonix Ec Tab) 40 mg PO DAILY [facility] Last Admin: 12/04/16 10:38 Dose: 40 mg Sucralfate (Carafate Tab) 1 gm PO BID [facility] Last Admin: 12/04/16 18:29 Dose: 1 gm - Labs Labs: 12/04/16 06:09 12/04/16 06:10 PT 12.9 SECONDS (9.7-12.2) H 12/03/16 15:17 INR 1.2 12/03/16 15:17 APTT 22 SECONDS (21-34) 12/03/16 15:17 - Constitutional Appears: Non-toxic, No Acute Distress - Head Exam Head Exam: ATRAUMATIC, NORMOCEPHALIC - Eye Exam Eye Exam: EOMI, PERRL Pupil Exam: PERRL. absent: Miosis, Mydriatic - ENT Exam ENT Exam: Mucous Membranes Moist, Normal Exam - Neck Exam Neck Exam: Full ROM, Normal Inspection - Respiratory Exam Respiratory Exam: Clear to Ausculation Bilateral. absent: Rales, Rhonchi, Wheezes - Cardiovascular Exam Cardiovascular Exam: RRR, +S1, +S2. absent: Gallop, Rubs - GI/Abdominal Exam GI & Abdominal Exam: Soft, Normal Bowel Sounds. absent: Distended, Firm, Guarding, Rigid, Tenderness, Organomegaly, Rebound - Extremities Exam Extremities Exam: Normal Inspection. absent: Pedal Edema - Neurological Exam Neurological Exam: Alert, Awake - Psychiatric Exam Psychiatric exam: Normal Affect, Normal Mood - Skin Skin Exam: Dry, Intact, Normal Color, Warm Assessment and Plan - Assessment and Plan (Free Text) Assessment: 56 year old male with history of Hypertension, Gout, perforated diverticulitis s /p partial resection 2010, PUD presenting with syncope. Active treatment of symptomatic anemia 2/2 Upper GI bleed s/p 1Unit pRBC POD2 (12/03) superficial 10mm duodenal ulcer, Cal III classification. Prior EGD/colonoscopy [id number] showed polyps and small gastric ulcers per patient. Plan: >continue PPI daily and sucralfate BID >no overt GI blood loss >H/H stable >regular diet >outpatient follow up for duodenal ulcer biopsy and anemia with established carbonizer >okay to discharge from GI standpoint <Gerber Gooden - Last Filed: 12/05/16 09:15> Objective - Vital Signs/Intake and Output Vital Signs (last 24 hours): Temp Pulse Resp BP Pulse Ox 98 F 77 20 109/58 L 99 12/05/16 00:00 12/05/16 00:00 12/05/16 00:00 12/05/16 00:00 12/05/16 00:00 Intake and Output: 12/05/16 12/05/16 06:59 18:59 Intake Total 700 Balance 700 - Medications Medications: Current Medications Pantoprazole Sodium (Protonix Ec Tab) 40 mg PO DAILY [facility] Last Admin: 12/04/16 10:38 Dose: 40 mg Sucralfate (Carafate Tab) 1 gm PO BID [facility] Last Admin: 12/04/16 18:29 Dose: 1 gm - Labs Labs: 12/05/16 08:17 12/05/16 08:17 PT 12.9 SECONDS (9.7-12.2) H 12/03/16 15:17 INR 1.2 12/03/16 15:17 APTT 22 SECONDS (21-34) 12/03/16 15:17 Attending/Attestation - Attestation I have personally seen and examined this patient.: Yes I have fully participated in the care of the patient.: Yes I have reviewed all pertinent clinical information, including history, physical exam and plan: Yes Notes (Text): 12/05/16 09:13 I have seen and examined patient with GI fellow. No acute events overnight. He is seen resting in bed, appears quite comfortable. He denies abdominal pain , nausea, vomiting, fever/chills. Tolerating PO diet without difficulty, no bowel movements over past 24 hours. Review of vitals from today are normal. HTN Anemia, melena s/p EGD showing large clean based duodenal ulcer without active bleeding noted - Diet as tolerated - Continue with PPI and carafate regimen - Awaiting biopsies from EGD - NSAID avoidance - H/H stable, continue to monitor - From GI standpoint, ok to discharge home with subsequent outpatient follow up. Patient has primary GI physician in [facility]. Will sign off case, please reconsult as necessary, thank you.
[2016-12-05 08:27] LABS: BASO % 0.8 % (0.0-2.0); EOS # 0.2 K/uL (0.0-0.7); EOS % 4.7 % (0.0-4.0); HEMATOCRIT 25.7 % (35.0-51.0); LYMPH # 1.7 K/uL (1.0-4.3); LYMPH % 34.1 % (20.0-40.0); MEAN CELL VOLUME 87.7 fL (80.0-94.0); MEAN CORPUSCULAR HEMOGLOBIN 29.4 pg (27.0-31.0); MEAN CORPUSCULAR HGB CONC 33.5 g/dL (33.0-37.0); MEAN PLATELET VOLUME 8.9 fL (7.2-11.7); MONO # 0.5 K/uL (0.0-0.8); MONO % 9.8 % (0.0-10.0); NRBC % 0.1 % (0.0-2.0); RED CELL DISTRIBUTION WIDTH 15.6 % (11.5-14.5)
[2016-12-05 08:47] LABS: CHLORIDE 104 mmol/L (98-107); POTASSIUM 3.8 mmol/L (3.6-5.2); SODIUM 138 mmol/L (132-148)
[2016-12-05 08:49] LABS: ALB/GLOB RATIO 1.1 (1.0-2.1); ALKALINE PHOSPHATASE 47 U/L (38-126); AST/SGOT 29 U/L (17-59); BILIRUBIN,TOTAL 0.4 mg/dL (0.2-1.3); CARBON DIOXIDE 24 mmol/L (22-30); GFR AFRICAN-AMERICAN > 60; TOTAL PROTEIN 6.2 g/dL (6.3-8.3)
[2016-12-05 08:50] LABS: ALT/SGPT 44 U/L (21-72); BLOOD UREA NITROGEN 12 mg/dL (9-20); CALCIUM 8.4 mg/dl (8.6-10.4); GLUCOSE,RANDOM 87 mg/dL (75-110)
[2016-12-05] MEDS: Pantoprazole 40 mg EC Tab PO SCH ×2 (10:36→18:32)
--- NOTE | 2016-12-05 13:35 | CP.PCM.PN ---
Subjective - Date & Time of Evaluation Date of Evaluation: 12/05/16 Time of Evaluation: 13:35 Objective - Vital Signs/Intake and Output Vital Signs (last 24 hours): Temp Pulse Resp BP Pulse Ox 98 F 77 20 109/58 L 99 12/05/16 00:00 12/05/16 00:00 12/05/16 00:00 12/05/16 00:00 12/05/16 00:00 Intake and Output: 12/05/16 12/05/16 11:59 23:59 Intake Total 300 Balance 300 - Medications Medications: Current Medications Pantoprazole Sodium (Protonix Ec Tab) 40 mg PO DAILY [facility] Last Admin: 12/05/16 10:36 Dose: 40 mg Sucralfate (Carafate Tab) 1 gm PO BID [facility] Last Admin: 12/05/16 10:36 Dose: 1 gm - Labs Labs: 12/05/16 08:17 12/05/16 08:17 PT 12.9 SECONDS (9.7-12.2) H 12/03/16 15:17 INR 1.2 12/03/16 15:17 APTT 22 SECONDS (21-34) 12/03/16 15:17
--- NOTE | 2016-12-05 13:36 | CP.PCM.PN ---
Subjective - Date & Time of Evaluation Date of Evaluation: 12/05/16 Time of Evaluation: 13:36 - Subjective Subjective: CHIEF COMPLAINTS TODAY : WEAK NO FURTHER ASHLEIGH ROS. HEENT : N. Resp : No cough, wheezing ,pleuritic CP ,or hemoptysis Cardio : No anginal CP, PND, orthopnea, palpitation GI : No abd.pain, n/v ,diarrhea or GI bleeding . CENTER REP : No headache, vertigo, focal deficit. Musculoskel : No joint swelling , Derm : No rash Psych : Normal affect. Ext : No swelling ,calf pain PE. Pt. is alert awake in no distress. V.S As noted in the chart Head ,ear nose,throat and eyes : Normal. Neck : Supple with normal carotids. Lungs: Clear air entry. Heart : S1 & S2 normal with S4. No murmur. Abd : Soft non tender with normal bowel sounds. Neuro : Moves all ext. with no localized deficit. Ext : No edema with intact pulses.Non tender calves Derm : No rashes or decubitus ulcer. LABS/RADIOLOGY: ASSESSMENT/PLAN : S/P ENDO AWAITING LCER BIOPSY Objective - Vital Signs/Intake and Output Vital Signs (last 24 hours): Temp Pulse Resp BP Pulse Ox 98 F 77 20 109/58 L 99 12/05/16 00:00 12/05/16 00:00 12/05/16 00:00 12/05/16 00:00 12/05/16 00:00 Intake and Output: 12/05/16 12/05/16 11:59 23:59 Intake Total 300 Balance 300 - Medications Medications: Current Medications Pantoprazole Sodium (Protonix Ec Tab) 40 mg PO DAILY [facility] Last Admin: 12/05/16 10:36 Dose: 40 mg Sucralfate (Carafate Tab) 1 gm PO BID BEN Last Admin: 12/05/16 10:36 Dose: 1 gm - Labs Labs: 12/05/16 08:17 12/05/16 08:17 PT 12.9 SECONDS (9.7-12.2) H 12/03/16 15:17 INR 1.2 12/03/16 15:17 APTT 22 SECONDS (21-34) 12/03/16 15:17
[2016-12-06 07:21] LABS: BASO % 0.8 % (0.0-2.0); EOS # 0.2 K/uL (0.0-0.7); EOS % 4.2 % (0.0-4.0); LYMPH # 1.6 K/uL (1.0-4.3); LYMPH % 33.1 % (20.0-40.0); MEAN CELL VOLUME 87.3 fL (80.0-94.0); MEAN CORPUSCULAR HGB CONC 33.3 g/dL (33.0-37.0); MEAN PLATELET VOLUME 8.6 fL (7.2-11.7); MONO # 0.4 K/uL (0.0-0.8); MONO % 7.8 % (0.0-10.0); NRBC % 0.1 % (0.0-2.0); RED CELL DISTRIBUTION WIDTH 16.1 % (11.5-14.5); WHITE BLOOD COUNT 4.8 K/uL (4.8-10.8)
[2016-12-06 08:43] VITALS: BP 136/77; PULSE 78; TEMP 98; O2SAT 97
[2016-12-06] MEDS: Pantoprazole 40 mg EC Tab PO SCH (10:21)
--- NOTE | 2016-12-06 13:14 | CP.PCM.DIS ---
Provider - Provider Date of Admission: 12/03/16 16:38 Attending physician: Magali Reid MD Time Spent in preparation of Discharge (in minutes): 30 Hospital Course - Lab Results Lab Results: Micro Results 12/04/16 14:45 Nose MRSA Culture - Final MRSA NOT DETECTED 12/04/16 12:00 Nose MRSA Culture (Admit) - Final MRSA NOT DETECTED Most Recent Lab Values WBC 4.8 K/uL (4.8-10.8) 12/06/16 07:03 RBC 3.09 Mil/uL (4.40-5.90) L 12/06/16 07:03 Hgb 9.0 g/dL (12.0-18.0) L 12/06/16 07:03 Hct 27.0 % (35.0-51.0) L 12/06/16 07:03 MCV 87.3 fL (80.0-94.0) 12/06/16 07:03 MCH 29.0 pg (27.0-31.0) 12/06/16 07:03 MCHC 33.3 g/dL (33.0-37.0) 12/06/16 07:03 RDW 16.1 % (11.5-14.5) H 12/06/16 07:03 Plt Count 150 K/uL (130-400) 12/06/16 07:03 MPV 8.6 fL (7.2-11.7) 12/06/16 07:03 Neut % (Auto) 54.1 % (50.0-75.0) 12/06/16 07:03 Lymph % (Auto) 33.1 % (20.0-40.0) 12/06/16 07:03 Robeson % (Auto) 7.8 % (0.0-10.0) 12/06/16 07:03 Eos % (Auto) 4.2 % (0.0-4.0) H 12/06/16 07:03 Baso % (Auto) 0.8 % (0.0-2.0) 12/06/16 07:03 Neut # 2.6 K/uL (1.8-7.0) 12/06/16 07:03 Lymph # 1.6 K/uL (1.0-4.3) 12/06/16 07:03 Robeson # 0.4 K/uL (0.0-0.8) 12/06/16 07:03 Eos # 0.2 K/uL (0.0-0.7) 12/06/16 07:03 Baso # 0.0 K/uL (0.0-0.2) 12/06/16 07:03 Differential Comment 12/03/16 15:17 PT 12.9 SECONDS (9.7-12.2) H 12/03/16 15:17 INR 1.2 12/03/16 15:17 APTT 22 SECONDS (21-34) 12/03/16 15:17 Sodium 138 mmol/L (132-148) 12/05/16 08:17 Potassium 3.8 mmol/L (3.6-5.2) 12/05/16 08:17 Chloride 104 mmol/L (98-107) 12/05/16 08:17 Carbon Dioxide 24 mmol/L (22-30) 12/05/16 08:17 Anion Gap 13 (10-20) 12/05/16 08:17 BUN 12 mg/dL (9-20) 12/05/16 08:17 Creatinine 1.0 mg/dL (0.8-1.5) 12/05/16 08:17 Est GFR ( Amer) > 60 12/05/16 08:17 Est GFR (Non-Af Amer) > 60 12/05/16 08:17 Random Glucose 87 mg/dL (75-110) 12/05/16 08:17 Calcium 8.4 mg/dl (8.6-10.4) L 12/05/16 08:17 Phosphorus 3.0 mg/dL (2.5-4.5) 12/04/16 06:10 Magnesium 1.7 mg/dL (1.6-2.3) 12/04/16 06:10 Total Bilirubin 0.4 mg/dL (0.2-1.3) 12/05/16 08:17 AST 29 U/L (17-59) 12/05/16 08:17 ALT 44 U/L (21-72) 12/05/16 08:17 Alkaline Phosphatase 47 U/L (38-126) 12/05/16 08:17 Total Creatine Kinase 347 U/L (55-170) H 12/03/16 15:17 CK-MB (Mass) 1.60 ng/mL (0.0-3.38) 12/03/16 15:17 Troponin I, Quant < 0.0120 ng/mL (0.00-0.120) 12/03/16 15:17 Total Protein 6.2 g/dL (6.3-8.3) L 12/05/16 08:17 Albumin 3.2 g/dL (3.5-5.0) L 12/05/16 08:17 Globulin 2.9 gm/dL (2.2-3.9) 12/05/16 08:17 Albumin/Globulin Ratio 1.1 (1.0-2.1) 12/05/16 08:17 Stool Occult Blood Positive (NEGATIVE) H 12/03/16 15:49 Blood Type O POSITIVE 12/03/16 15:17 Antibody Screen Negative 12/03/16 15:17 - Hospital Course Hospital Course: WITH NO PREVIOUS CARDIAC HISTORY ,PT WHILE GOING TO WORK , HAD SYNCOPAL EPISODE . PRELIMANARY W/U IN ER , HG 8.4, POS OCCULT STOOL RECENTLY HAD EGD/COLO IN [place] , SMALL GASTRIC ULCER NO ASA, NSAID INGESTION PAST HIST. NO CARDIAC/NEURO HISTORY EMERGENCY EGD WAS DONE ON SAME DAY NO ACTIVE BLEEDING LARGE GASTRIC ULCER BIOPSY CAME BACK H. [facility] AB+ ANTIPEPCIS MEDS WAS RX BY GI THIS WAS EXTENSIVELY D/W PT LAST HG WAS 9.0 GM PT HAS PMD /GI IN [facility] PT WAS ADVISED TO INFORM HIS PMD TO OBTAIN ALL CH RECORDS FOR CONTINUITY OF CARE ( PRESENT AT THE DISCUSSIONJ ) Discharge Exam - Head Exam Head Exam: ATRAUMATIC, NORMOCEPHALIC Discharge Plan - Discharge Medications Prescriptions: Amoxicillin [Amoxil 500 mg Cap] 1,000 mg PO BID #56 cap Clarithromycin [Biaxin Filmtab] 500 mg PO Q12H #28 tab Sucralfate [Carafate Tab] 1 gm PO BID #30 tab Pantoprazole [Protonix EC Tab] 40 mg PO BID #28 ect - Follow Up Plan Condition: SERIOUS Disposition: HOME/ ROUTINE
== END 2016-12-06 16:21 | disposition home or self-care (01) | DRG 384 ==
LOC: C.ER 14:13 → C.9I 16:38 → C.9E 16:38 → C.3T 12-04 14:05
PROVIDERS: ADMIT Internal Medicine Cardiovascular Disease; ATTEND Internal Medicine Cardiovascular Disease
PROC: 0DD68ZX Extraction of Stomach, Via Natural or Artificial Opening Endoscopic, Diagnostic (ICD-10-PCS; principal; 2016-12-03 20:15)
DX: K26.9 Duodenal ulcer, unspecified as acute or chronic, without hemorrhage or perforation (principal); I10 Essential (primary) hypertension; Z68.41 Body mass index [BMI] 40.0-44.9, adult; E11.9 Type 2 diabetes mellitus without complications; M10.9 Gout, unspecified; B96.81 Helicobacter pylori [H. pylori] as the cause of diseases classified elsewhere; D50.0 Iron deficiency anemia secondary to blood loss (chronic); K29.70 Gastritis, unspecified, without bleeding